=== PATIENT | male | born 1990 | race Asian ===

== ENCOUNTER 2018-07-01 15:25 | Emergency (ER) | payer OTHER ==
[~2018-07-01] VITALS: Ht 177.8 cm; Wt 83.9 kg
[2018-07-01 15:44] VITALS: BP 127/72; TEMP 97.4
== END 2018-07-01 16:40 | disposition home or self-care (01) ==
LOC: ED 15:25
DX: J02.9 Acute pharyngitis, unspecified (principal); F17.210 Nicotine dependence, cigarettes, uncomplicated
CPT/HCPCS: 87502; 87651; 99283